=== PATIENT | male | born 1990 | race Two or more races ===

== ENCOUNTER 2016-05-18 20:35 | Emergency (ER) | payer SELFPAY ==
[~2016-05-18] VITALS: Ht 172.7 cm; Wt 66.0 kg
[2016-05-18] MEDS ORDERED: TETANUS, DIPHTHERIA, PERTUSSIS VAC/PF 0.5ML (>7YR OLD) IM ONE (23:45)
[2016-05-18 23:47] VITALS: BP 158/88
[2016-05-19] MEDS ORDERED: IBUPROFEN 600MG TABLET PO ONE (01:30)
== END 2016-05-19 01:35 | disposition home or self-care (01) ==
LOC: ER 20:35
DX: S61.411A Laceration without foreign body of right hand, initial encounter (principal); S00.01XA Abrasion of scalp, initial encounter; S00.03XA Contusion of scalp, initial encounter; F15.120 Other stimulant abuse with intoxication, uncomplicated; Y08.89XA Assault by other specified means, initial encounter; Y93.89 Activity, other specified; Y92.89 Other specified places as the place of occurrence of the external cause; Y99.8 Other external cause status
CPT/HCPCS: 70450; 90471; 90715; 99284; A4217; Z7610

== ENCOUNTER 2025-02-13 17:49 | Emergency (ER) | payer MEDICAID ==
[~2025-02-13] VITALS: Ht 165.1 cm; Wt 69.0 kg
[2025-02-13 18:23] VITALS: TEMP 36.9; O2SAT 99
[2025-02-13 20:55] VITALS: BP 135/86; PULSE 62; RESP 14; O2SAT 100
== END 2025-02-13 20:57 | disposition home or self-care (01) ==
LOC: ER 17:49
DX: T18.9XXA Foreign body of alimentary tract, part unspecified, initial encounter (principal); F15.90 Other stimulant use, unspecified, uncomplicated; W44.9XXA Unspecified foreign body entering into or through a natural orifice, initial encounter; Y93.89 Activity, other specified; Y92.89 Other specified places as the place of occurrence of the external cause; Y99.8 Other external cause status
CPT/HCPCS: 70360; 71045; 74018; 99284